=== PATIENT | female | born 2000 | race Caucasian/White ===

== ENCOUNTER 2020-08-08 19:23 | Emergency (ER) | payer MEDICAID ==
[2020-08-08 19:31] VITALS: O2SAT 98
--- NOTE | 2020-08-08 19:49 | ERPHSYRPT ---
- History of Present Illness Time Seen by Provider: 08/08/20 19:25 Source: patient Exam Limitations: no limitations Patient Subjective Stated Complaint: Patient states " I was at the park yesterday and I jumped off of a piece of high equipment and came down and landed on my left foot/ankle and it has been causing me alot of discomfort mostly when I walk." Triage Nursing Assessment: Patient arrived to ED and ambulated to room without difficulty. Patient A/O times 4. Patient able to follow instructions without difficulty. Patient gait steady and WNL when ambulated to room. Lungs clear bilateral A/P throughout. Patient denies any SOB. Patient denies any chest pain. Patient left lower foot with + strong pedal pulse. No edema noted to left lower extremity/foot. Patient denies any numbness or tingling of left extremity. Patient's ROM WNL. Cap refill < 3 seconds to left lower extremity. Patient able to wiggle toes without difficulty. Patient states her pain is when she bears weight to left lower extremity. No bruising noted. Patient denies any further injury or trauma. Physician History: 19 years old presented in the ER with chief complaint of fall with twisting right foot and ankle from a high equipment at park this afternoon. Patient report mild to moderate sharp pain with walking and better with being still and resting mostly in the left anterior foot. Minimal discomfort in the ankle. Minimal swelling of the foot. No numbness tingling or weakness. No injury anywhere else. Method of Injury: fell, twisted Occurred: this afternoon Quality: sharpness Severity of Pain-Max: moderate Severity of Pain-Current: mild Lower Extremities Pain: foot: left, ankle: left Modifying Factors: Improves With: immobilization, rest. Worsens With: movement Associated Symptoms: No snapping sensation, No popping sensation Allergies/Adverse Reactions: No Known Drug Allergies Allergy (Unverified 08/08/20 19:28) Hx Tetanus, Diphtheria Vaccination/Date Given: Yes Hx Influenza Vaccination/Date Given: No Hx Pneumococcal Vaccination/Date Given: No Immunizations Up to Date: Yes Travel Risk - International Travel Have you traveled outside of the country in past 3 weeks: No - Coronavirus Screening Are you exhibiting any of the following symptoms?: No Close contact with a COVID-19 positive Pt in past 14-21 Days: No - Vaccine Status Have you recieved a Covid-19 vaccination: No - Review of Systems Constitutional: No Symptoms Eyes: No Symptoms Ears, Nose, & Throat: No Symptoms Respiratory: No Symptoms Cardiac: No Symptoms Abdominal/Gastrointestinal: No Symptoms Musculoskeletal: Injury, Joint Pain, Joint Swelling Skin: No Symptoms Neurological: No Symptoms Psychological: No Symptoms Endocrine: No Symptoms Hematologic/Lymphatic: No Symptoms - Past Medical History Pertinent Past Medical History: No Neurological History: No Pertinent History ENT History: No Pertinent History Cardiac History: No Pertinent History Respiratory History: No Pertinent History Endocrine Medical History: No Pertinent History Musculoskeletal History: No Pertinent History GI Medical History: No Pertinent History History: No Pertinent History Psycho-Social History: No Pertinent History Female Reproductive Disorders: No Pertinent History - Past Surgical History Past Surgical History: Yes Neuro Surgical History: No Pertinent History Cardiac: No Pertinent History Respiratory: No Pertinent History Gastrointestinal: No Pertinent History Genitourinary: No Pertinent History Musculoskeletal: Orthopedic Surgery Female Surgical History: No Pertinent History Other Surgical History: Left Arm Surgery - Social History Smoking Status: Never smoker Exposure to second hand smoke: Yes Drug Use: none Patient Lives Alone: No - Female History Hx Last Menstrual Period: 08/06/20 Hx Now: (unkn) - Nursing Vital Signs Nursing Vital Signs: Initial Vital Signs Temperature 98.1 F 08/08/20 19:30 Pulse Rate 80 08/08/20 19:30 Respiratory Rate 20 08/08/20 19:30 Blood Pressure 114/82 08/08/20 19:30 O2 Sat by Pulse Oximetry 98 08/08/20 19:30 Pain Scale Pain Intensity 5 - Physical Exam General Appearance: no apparent distress Neck Exam: normal inspection, supple, full range of motion Cardiovascular/Respiratory Exam: normal breath sounds, regular rate/rhythm Legs Exam: bilateral leg: non-tender, normal inspection, normal range of motion, no evidence of injury Knees Exam: bilateral knee: non-tender, normal inspection, normal range of mot ion, no evidence of injury Ankle Exam: bilateral ankle: non-tender, normal inspection, normal range of motion, no evidence of injury Foot Exam: right foot: non-tender, normal inspection, no evidence of injury, left foot: bone tenderness (Anterior medial aspect of dorsum of foot), pain, soft tissue tenderness, swelling, bilateral foot: normal range of motion Neuro/Tendon Exam: normal sensation, normal motor functions Mental Status Exam: alert, oriented x 3, cooperative Skin Exam: normal color SpO2 Interpretation: normal SpO2: 98 O2 Delivery: Room Air Ordered Tests: Active Orders 24 hr Category Date Time Status FOOT (MINIMUM 3 VIEWS) Stat Exams 08/08/20 Ordered - Progress Progress: unchanged Progress Note: 08/08/20 19:46 She is offered pain medicine but she refused. X-rays are obtained which are negative for any fracture dislocation in the foot reviewed by me, official report is pending. Does not have any tenderness in the ankle and intact range of motion, do not think needs ankle imaging. Recommended Brandyn wrap, NSAIDs and outpatient follow-up. Counseled pt/family regarding: diagnosis, need for follow-up, rad results - Departure Departure Disposition: Home Clinical Impression: Sprain of foot, left Qualifiers: Encounter type: initial encounter Qualified Code(s): S93.602A - Unspecified sprain of left foot, initial encounter Condition: Stable Critical Care Time: No Referrals: CHRIS TODD [Primary Care Provider] - Follow Up with PCP/3 days JAMAL KAUR DPM [ACTIVE STAFF] - (2 to 3 days for reevaluation.) Instructions: Foot Sprain (DC), Foot Fracture (DC) Additional Instructions: Weightbearing as tolerated. Take Tylenol/ibuprofen as needed for pain. Avoid exertional activities. Follow-up with primary care/podiatry for reevaluation. Return to ER for worsening pain swelling or difficulty ambulation. Prescriptions: Ibuprofen 600 mg PO Q6HPRN PRN 10 Days #20 tablet PRN Reason: Pain
[2020-08-08 20:13] VITALS: BP 105/74; PULSE 84
--- NOTE | 2020-08-09 08:33 | XRAY ---
Indication: Pain following fall. Comparison: None 3 nonweightbearing views left foot demonstrates small anterior talus bone island. No other bony, articular, or soft tissue abnormalities.
== END 2020-08-08 20:20 | disposition home or self-care (01) ==
LOC: ED 19:23
DX: S93.602A Unspecified sprain of left foot, initial encounter (principal); X50.0XXA Overexertion from strenuous movement or load, initial encounter; X50.9XXA Other and unspecified overexertion or strenuous movements or postures, initial encounter; Y93.39 Activity, other involving climbing, rappelling and jumping off; Y92.830 Public park as the place of occurrence of the external cause
CPT/HCPCS: 73630; 99283